=== PATIENT | male | born 1940 | race Hispanic/Latino ===

== ENCOUNTER 2020-09-06 12:55 | Outpatient (CLI) | payer MEDICARE ==
--- NOTE | 2020-09-06 14:56 | MRI ---
MR OF THE PELVIS WITH AND WITHOUT CONTRAST INDICATION: 80-year-old male with elevated PSA COMPARISON: None TECHNIQUE: Multiplanar, multisequence MR images were obtained of the pelvis with and without IV contr ast. 20 cc of MultiHance was utilized for the examination. The examination was reviewed on a separate [employer] 3-D workstation for multiplanar metric evaluation. FINDINGS: Prostate size: The prostate measured 6.1 x 5.9 x 5.0cm. 78.8 cc. Peripheral zone: There is a 2.5 x 1.8 cm ADC hypointense, T2 hyperintense lesion within the anterior and posterior aspects of the posterior lateral peripheral zone of the left prostatic base, mid gland and apex that demonstrates abnormal dynamic contrast enhancement. The lesion abuts the margin o f the left lateral and posterior lateral prostate capsule suspicious for extracapsular extension. There is an additional 1.4 x 0.8 cm ADC and T2 hypointense lesion seen within the medial aspect of th e left posterior medial peripheral zone, at the level of the mid gland that extends to the apex. This lesion also demonstrates abnormal dynamic contrast enhancement. Central zone: No suspicious signal abnormality or focal lesion. Neural vasculature: The extent of the large posterior lateral peripheral zone lesion's involvement wi th the left aspect of the prostatic capsule is suspicious for neurovascular invasion on the left. Regional lymphadenopathy: None Dynamic contrast enhancement: There is abnormal dynamic contrast enhancement involving the 2 left-sarbjit ed peripheral zone lesions as detailed above. Osseous structures: No suspicious osseous lesion is identified. Additional findings: There is wall thickening with some inflammatory stranding involving the sigmoid colon with scattered colonic diverticula suspicious for active sigmoid colonic diverticulitis.. IMPRESSION: 1. 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 The lesion abuts a large segment of the left prostate capsule and is suspicious for left- sided extracapsular spread of disease as well as left-sided neurovascular invasion. 2. PIRADS 4-high (clinically significant cancer is unlikely to be present). The 1.4 cm hypointense le pati involving the medial aspect of the left posterior medial peripheral zone at the level of the mid gland extending into the left prostatic apex is suspicious for prostatic malignancy. 3. Wall thickening with pericolonic inflammatory stranding involving the sigmoid colon suspicious for sigmoid colonic diverticulitis.
== END 2020-09-06 12:56 | disposition home or self-care (01) ==
LOC: TBSIIMAG 12:55
PROVIDERS: ATTEND Urology
DX: R97.20 Elevated prostate specific antigen [PSA] (principal); N42.89 Other specified disorders of prostate; K63.89 Other specified diseases of intestine
CPT/HCPCS: 72197; 82565